=== PATIENT | male | born 1945 ===

== ENCOUNTER → 2017-10-11 | Outpatient (CLI) | payer MEDICARE, OTHER ==
[~2017-10-11] MED LIST: ASCO500 PO; ERGO400 PO; FISH1000 PO; GINGER ROOT; LOSHYD PO; PSYL5.85P PO; Verapamil ER100 MG PO
[2017-10-11 11:47] LABS: Protein, Urine Random 52.2 mg/dL (0.0-11.9)
== END ==
LOC: OLS 10:27
PROVIDERS: Internal Medicine
DX: E80.6 Other disorders of bilirubin metabolism (principal); I10 Essential (primary) hypertension
CPT/HCPCS: 82570; 84156